=== PATIENT | male | born 1995 | race African-American/Black ===

== ENCOUNTER 2023-03-20 14:11 | Emergency (ER) | payer MEDICAID ==
[~2023-03-20] VITALS: Ht 175.3 cm; Wt 69.0 kg
[2023-03-20 14:28] VITALS: BP 131/90; PULSE 105; RESP 14; TEMP 98.2; O2SAT 97
[2023-03-20] MEDS ORDERED: ISOP30DR11 EACH EAR (18:28)
== END 2023-03-20 18:42 | disposition home or self-care (01) ==
LOC: ER 14:11
DX: H61.23 Impacted cerumen, bilateral (principal)
CPT/HCPCS: 99282